=== PATIENT | male | born 1985 | race African-American/Black ===

== ENCOUNTER 2019-06-04 14:03 | Emergency (ER) | payer SELFPAY ==
[~2019-06-04] VITALS: Ht 170.2 cm; Wt 71.0 kg
[2019-06-04 16:07] VITALS: BP 105/62
[2019-06-04] MEDS ORDERED: BACITRACIN 15GM TUBE TOP NR (16:43)
[2019-06-04] MEDS ORDERED: IBUPROFEN 600MG TABLET PO ONE (16:45)
== END 2019-06-04 18:05 | disposition home or self-care (01) ==
LOC: ER 14:03
DX: S63.501A Unspecified sprain of right wrist, initial encounter (principal); S60.221A Contusion of right hand, initial encounter; Y04.0XXA Assault by unarmed brawl or fight, initial encounter; Y93.89 Activity, other specified; Y92.89 Other specified places as the place of occurrence of the external cause; Y99.8 Other external cause status; Z87.891 Personal history of nicotine dependence
CPT/HCPCS: 73110; 73130; 99283